=== PATIENT | female | born 1990 | race Caucasian/White ===

== ENCOUNTER → 2016-11-02 | Outpatient (CLI) | payer OTHER ==
--- NOTE | 2016-11-02 19:19 | REP ---
Clinical: Trauma. Technique: AP, lateral, bilateral oblique views right hand . Findings: The osseous structures and joint spaces are intact and normal. There is no evidence for acute fracture or dislocation. Surrounding soft tissues are unremarkable. No subcutaneous emphysema or radiodense foreign body. Impression: Normal examination. No acute fracture or dislocation. Signed by Darinel Saleem MD 11/02/2016 07:11 P
== END ==
LOC: M LRY 18:16
PROVIDERS: ATTEND Physician Assistant Medical
DX: M25.541 Pain in joints of right hand (principal)
CPT/HCPCS: 73130; G0463

== ENCOUNTER 2016-12-06 20:29 | Emergency (ER) | payer OTHER ==
[2016-12-06] MEDS ORDERED: KETOROLAC 30 MG/ML VIAL (J1885) As Ordered ONE (21:33)
[2016-12-06] MEDS ORDERED: ONDANSETRON 4MG/2ML VIAL (J2405) As Ordered ONE (21:33)
[2016-12-06] MEDS ORDERED: LORazepam 2 MG/ML VIAL (J2060) As Ordered ONE (22:00)
[2016-12-06 22:03] LABS: BASO % 0.4 % (0.0-1.0); EOS % 0.8 % (0.0-3.0); LARGE UNSTAINED CELL # 0.1 K/mm3 (0.0-0.4); LARGE UNSTAINED CELL % 1.7 % (0.0-4.0); LYMPH # 1.4 K/mm3 (1.5-6.5); LYMPH % 25.3 % (24.0-44.0); MEAN CORPUSCULAR HEMOGLOBIN 30.3 pg (27.0-33.0); MEAN CORPUSCULAR HGB CONC 34.2 g/dl (32.0-36.5); MEAN CORPUSCULAR VOLUME 88.7 fl (80.0-96.0); MONO # 0.4 K/mm3 (0.0-0.8); MONO % 6.7 % (0.0-5.0); NEUTROPHILS # 3.5 K/mm3 (1.8-7.7); NEUTROPHILS % 65.1 % (36.0-66.0); PLATELET COUNT, AUTOMATED 206 k/mm3 (150-450); WHITE BLOOD COUNT 5.4 K/mm3 (4.0-10.0)
[2016-12-06 22:15] LABS: CONTROL LINE HCG INT CTR LINE PRESENT
[2016-12-06 22:22] LABS: ALBUMIN 4.5 GM/DL (3.2-5.2); ALBUMIN/GLOBULIN RATIO 1.15 (1.00-1.93); ALKALINE PHOSPHATASE 80 U/L (45-117); ALT/SGPT 16 U/L (12-78); AMYLASE 57 U/L (25-115); ANION GAP 9 MEQ/L (8-16); AST/SGOT 10 U/L (15-37); BILIRUBIN,DIRECT 0.2 MG/DL (0.0-0.2); BILIRUBIN,TOTAL 0.6 MG/DL (0.2-1.0); BLOOD UREA NITROGEN 14 MG/DL (7-18); CALCIUM LEVEL 9.2 MG/DL (8.5-10.1); CARBON DIOXIDE LEVEL 30 MEQ/L (21-32); CHLORIDE LEVEL 103 MEQ/L (98-107); CREATININE FOR GFR 0.84 MG/DL (0.55-1.02); GLOMERULAR FILTRATION RATE > 60.0 (>60); GLUCOSE, FASTING 82 MG/DL (70-105); POTASSIUM SERUM 3.7 MEQ/L (3.5-5.1); SODIUM LEVEL 142 MEQ/L (136-145); TOTAL PROTEIN 8.4 GM/DL (6.4-8.2)
[2016-12-06] MEDS ORDERED: METOCLOPRAMIDE INJ 10MG/2ML VIAL (J2765) As Ordered ONE (22:30)
--- NOTE | 2016-12-06 23:27 | EDDOCDS ---
Nurse's Notes [facility] Name: Mary Canales Age: 26 yrs Sex: Female : 1990 Arrival Date: 12/06/2016 Time: 20:29 Bed I2 / M2 Private MD: Everton Diagnosis: Nausea and vomiting Presentation: 12/06 20:32 Presenting complaint: Patient states: n/v x 3 days. Pt sent here from [facility] [place] [id number] for further work-up. Adult Sepsis Screening: The patient does not have new or worsening altered mentation. Patient's respiratory rate is less than 22. Systolic blood pressure is greater than 100. Patient has a qSOFA score of 0- Negative Sepsis Screen. Suicide/Homicide risk assessment- the patient denies having any suicidal and/or homicidal ideations and does not present with any other emotional, behavioral or mental health complaints. Status: The patient is a dependent. Transition of care: Patient was received from [facility]. 20:32 Acuity: ANA Level 3 [facility] 20:32 Method Of Arrival: Walkin/Carried/Asstd kc3 Triage Assessment: 20:37 General: Appears in no apparent distress, comfortable, Behavior is appropriate for age, kc3 cooperative. Pain: Denies pain. Pt Declines HIV testing. Neurological: Level of Consciousness is awake, alert, obeys commands. Respiratory: Respiratory effort is even, unlabored. GI: Reports nausea, vomiting. Derm: Skin is pink, warm & dry. 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 trazodone 50 mg Oral tab daily 2. clonazepam 1 mg Oral tab nightly 3. Lexapro 20 mg Oral tab 1 tab once daily 4. Xanax 0.25 mg Oral tab as needed 5. Mirena 20 mcg/24 hr (5 years) intrauterine IUD placed about a year ago - PMHx: Anxiety; Depression; Insomnia; - PSHx: ; Knee Arthroplasty, Left; - Social history: Smoking status: Patient states was never smoker of tobacco. No barriers to communication noted, The patient speaks fluent Stateless, Speaks appropriately for age. - Family history: Not pertinent. - : The pt / caregiver states he / she is not on anticoagulants. Home medication list is obtained from the patient. - Exposure Risk Screening:: None identified. Screenin:23 Screening information is obtained from the patient. Fall risk: No risks identified. rw1 Assistance ADL's: requires no assistance with activities of daily living. Abuse/DV Screen: The patient / caregiver reports he/she is: not in a situation that causes fear, pain or injury. Nutritional screening: No deficits noted. Advance Directives: Currently, there is no health care proxy. home support is adequate. Assessment: 21:56 General: Appears in no apparent distress, Behavior is anxious, cooperative. Pain: ld5 Denies pain. Neurological: Level of Consciousness is awake, alert. Respiratory: Airway is patent Respiratory effort is even, unlabored. GI: Abdomen is non- distended Bowel sounds present X 4 quads. Abd is soft and non tender X 4 quads. Reports nausea, vomiting, intolerance of food, intolerance of fluids, since Friday. : Denies burning with urination, pain with urination. Derm: Skin is intact, Skin is dry. 22:11 General: Pt declining Toradol. Denies pain. Requesting anxiety medication. Provider ld5 made aware and pt medicated per orders. Will continue to monitor. 22:37 General: Pt reports no change in nausea. Provider aware and pt medicated per orders. ld5 Call cook within reach. Will continue to monitor. 23:08 General: Reglan infusion complete. Pt reports decrease in nausea. Reports feeling ld5 better. Provider aware. Will continue to monitor. 23:23 Reassessment: Patient appears in no apparent distress at this time. Patient denies pain rw1 at this time. Patient states feeling better. Patient states symptoms have improved. Vital Signs: 20:31 BP 111 / 69; Pulse 88; Resp 18 S; Temp 98.6(O); Pulse Ox 96% on R/A; Weight 72.57 kg gr2 (R); Height 5 ft. 2 in. (157.48 cm) (R); Pain 0/10; 23:23 BP 107 / 59; Pulse 74; Resp 16; Temp 98.2(O); Pulse Ox 96% on R/A; Pain 0/10; rw1 20:31 Body Mass Index 29.26 (72.57 kg, 157.48 cm) gr2 Vitals: 20:31 Log In Time: December 06, 2016 at 20:31. gr2 ED Course: 20:30 Patient visited by Slick Celeste. gr2 20:30 Everton is Private Physician. gr2 20:30 Patient moved to Waiting gr2 20:32 Patient visited by Slick Celeste. gr2 20:32 Patient moved to Pre RCE gr2 20:35 Triage Initiated kc3 21:14 Patient moved to Triage 1 cz 21:22 [facility] ke 21:22 Patient visited by Rey Olivares FNP. ke 21:22 Patient visited by Rey Olivares FNP. ke 21:32 Patient moved to I2 / M2 cln 21:53 Patient visited by Rey Olivares FNP. ke 21:55 Amylase Sent. ld5 21:55 Basic Metabolic Profile Sent. ld5 21:55 CBC with Diff Sent. ld5 21:55 HCG,Serum Qualitative Sent. ld5 21:55 Lipase Sent. ld5 21:55 Liver Profile Sent. ld5 21:55 Urinalysis Sent. ld5 21:55 Urine Culture Sent. ld5 21:56 Inserted saline lock: 20 gauge in right antecubital area and blood collected. The ld5 patient tolerated the procedure well. Labs drawn. (by ED staff). Sent per order to lab. Urine collected. Clean catch specimen. Urine specimen sent to lab. 21:57 Patient visited by Anyi Lyons RN. ld5 22:12 Patient visited by Anyi Lyons RN. ld5 22:38 Patient visited by Anyi Lyons RN. ld5 22:55 [facility] [place] Payment Agreement was scanned into [employer] and attached to record. gjb 23:08 Patient visited by Anyi Lyons RN. ld5 23:13 Everton is Referral Physician. ke 23:23 The patient / caregiver is instructed regarding the plan of care and ED course. rw1 23:23 Discontinued IV lock intact, bleeding controlled, pressure dressing applied, No rw1 redness/swelling at site. No procedures done that require assistance. Administered Medications: 21:55 Drug: NS 0.9% 1000 ml [sodium chloride 0.9 % intravenous solution] Route: IV; Rate: ld5 bolus; Site: right antecubital; 23:25 Follow up: IV Status: Completed infusion rw1 21:55 Drug: Ondansetron 4 mg [ondansetron HCl 2 mg/mL intravenous solution (2 mL)] Route: ld5 IVP; Site: right antecubital; 22:33 Follow up: Response: No significant change. ld5 22:07 Drug: LORazepam 0.5 mg [lorazepam 2 mg/mL injection solution (0.25 mL)] Route: IVP; ld5 Site: right antecubital; 23:25 Follow up: Response: No Adverse Reaction rw1 22:13 Not Given (Pt denies pain): ketorolac 30 mg IVP once ld5 22:37 Drug: Metoclopramide 10 mg [metoclopramide 5 mg/mL injection solution] Route: IV; Rate: ld5 40 mg/hr; Infused Over: 15 mins; Site: right antecubital; 23:25 Follow up: IV Status: Completed infusion rw1 Order Results: Lab Order: Amylase; SPEC'M 12/06/16 21:51 Test: AMYLASE; Value: 57; Range: 25-115; Units: U/L; Status: F Lab Order: Basic Metabolic Profile; SPEC'M 12/06/16 21:51 Test: GLUCOSE, FASTING; Value: 82; Range: 70-105; Units: MG/DL; Status: F Test: BLOOD UREA NITROGEN; Value: 14; Range: 7-18; Units: MG/DL; Status: F Test: CREATININE FOR GFR; Value: 0.84; Range: 0.55-1.02; Units: MG/DL; Status: F Test: SODIUM LEVEL; Range: 136-145; Units: MEQ/L; Status: I Test: POTASSIUM SERUM; Range: 3.5-5.1; Units: MEQ/L; Status: I Test: CHLORIDE LEVEL; Range: 98-107; Units: MEQ/L; Status: I Test: CARBON DIOXIDE LEVEL; Range: 21-32; Units: MEQ/L; Status: I Test: ANION GAP; Range: 8-16; Units: MEQ/L; Status: I Test: CALCIUM LEVEL; Range: 8.5-10.1; Units: MG/DL; Status: I Test: GLOMERULAR FILTRATION RATE; Value: > 60.0; Range: >60; Status: F Test: SODIUM LEVEL; Value: 142; Range: 136-145; Units: MEQ/L; Status: F Test: POTASSIUM SERUM; Value: 3.7; Range: 3.5-5.1; Units: MEQ/L; Status: F Test: CHLORIDE LEVEL; Value: 103; Range: 98-107; Units: MEQ/L; Status: F Test: CARBON DIOXIDE LEVEL; Value: 30; Range: 21-32; Units: MEQ/L; Status: F Test: ANION GAP; Value: 9; Range: 8-16; Units: MEQ/L; Status: F Test: CALCIUM LEVEL; Value: 9.2; Range: 8.5-10.1; Units: MG/DL; Status: F Test Note: ; Units are mL/min/1.73 m2 Chronic Kidney Disease Staging per NKF: Stage I & II GFR >=60 Normal to Mildly Decreased Stage III GFR 30-59 Moderately Decreased Stage IV GFR 15-29 Severely Decreased Stage V GFR <15 Very Little GFR Left ESRD GFR <15 on MOTOR VEHICLE SALESPERSON Lab Order: CBC with Diff; SPEC'M 12/06/16 21:51 Test: WHITE BLOOD COUNT; Value: 5.4; Range: 4.0-10.0; Units: K/mm3; Status: F Test: RED BLOOD COUNT; Value: 5.26; Range: 4.00-5.40; Units: M/mm3; Status: F Test: HEMOGLOBIN; Value: 15.9; Range: 12.0-16.0; Units: g/dl; Status: F Test: HEMATOCRIT; Value: 46.6; Range: 36.0-47.0; Units: %; Status: F Test: MEAN CORPUSCULAR VOLUME; Value: 88.7; Range: 80.0-96.0; Units: fl; Status: F Test: MEAN CORPUSCULAR HEMOGLOBIN; Value: 30.3; Range: 27.0-33.0; Units: pg; Status: F Test: MEAN CORPUSCULAR HGB CONC; Value: 34.2; Range: 32.0-36.5; Units: g/dl; Status: F Test: RED CELL DISTRIBUTION WIDTH; Value: 12.0; Range: 11.5-14.5; Units: %; Status: F Test: PLATELET COUNT, AUTOMATED; Value: 206; Range: 150-450; Units: k/mm3; Status: F Test: NEUTROPHILS %; Value: 65.1; Range: 36.0-66.0; Units: %; Status: F Test: LYMPH %; Value: 25.3; Range: 24.0-44.0; Units: %; Status: F Test: MONO %; Value: 6.7; Range: 0.0-5.0; Abnormal: Above high normal; Units: %; Status: F Test: EOS %; Value: 0.8; Range: 0.0-3.0; Units: %; Status: F Test: BASO %; Value: 0.4; Range: 0.0-1.0; Units: %; Status: F Test: LARGE UNSTAINED CELL %; Value: 1.7; Range: 0.0-4.0; Units: %; Status: F Test: NEUTROPHILS #; Value: 3.5; Range: 1.8-7.7; Units: K/mm3; Status: F Test: LYMPH #; Value: 1.4; Range: 1.5-6.5; Abnormal: Below low normal; Units: K/mm3; Status: F Test: MONO #; Value: 0.4; Range: 0.0-0.8; Units: K/mm3; Status: F Test: EOS #; Value: 0.0; Range: 0.0-0.50; Units: K/mm3; Status: F Test: BASO #; Value: 0.0; Range: 0.0-0.2; Units: K/mm3; Status: F Test: LARGE UNSTAINED CELL #; Value: 0.1; Range: 0.0-0.4; Units: K/mm3; Status: F Lab Order: HCG,Serum Qualitative; SPEC'M 12/06/16 21:51 Test: HCG, SERUM QUALITATIVE; Value: NEGATIVE; Range: NEGATIVE; Status: F Lab Order: Lipase; SPEC'12/06/16 21:51 Test: LIPASE; Value: 104; Range: 73-393; Units: U/L; Status: F Lab Order: Liver Profile; SPEC'12/06/16 21:51 Test: AST/SGOT; Value: 10; Range: 15-37; Abnormal: Below low normal; Units: U/L; Status: F Test: ALT/SGPT; Value: 16; Range: 12-78; Units: U/L; Status: F Test: ALKALINE PHOSPHATASE; Value: 80; Range: 45-117; Units: U/L; Status: F Test: BILIRUBIN,TOTAL; Value: 0.6; Range: 0.2-1.0; Units: MG/DL; Status: F Test: BILIRUBIN,DIRECT; Value: 0.2; Range: 0.0-0.2; Units: MG/DL; Status: F Test: TOTAL PROTEIN; Value: 8.4; Range: 6.4-8.2; Abnormal: Above high normal; Units: GM/DL; Status: F Test: ALBUMIN; Value: 4.5; Range: 3.2-5.2; Units: GM/DL; Status: F Test: ALBUMIN/GLOBULIN RATIO; Value: 1.15; Range: 1.00-1.93; Status: F Lab Order: Urinalysis; SPEC'M 12/06/16 21:51 Test: APPEARANCE, URINE; Value: CLOUDY; Range: CLEAR; Abnormal: Above high normal; Status: F Test: COLOR, URINE; Value: RACHANA; Range: YELLOW; Status: F Test: PH,URINE; Value: 5.0; Range: 5.0-9.0; Units: UNITS; Status: F Test: SPECIFIC GRAVITY URINE AUTO; Value: 1.033; Range: 1.002-1.035; Status: F Test: PROTEIN, URINE AUTO; Value: 1+; Range: NEGATIVE; Abnormal: Above high normal; Units: mg/dL; Status: F Test: GLUCOSE, URINE (UA) AUTO; Value: NEGATIVE; Range: NEGATIVE; Units: mg/dL; Status: F Test: KETONE, URINE AUTO; Value: 2+; Range: NEGATIVE; Abnormal: Above high normal; Units: mg/dL; Status: F Test: UROBILINOGEN, URINE AUTO; Value: 2.0; Range: 0.0-2.0; Abnormal: Above high normal; Units: mg/dL; Status: F Test: BILIRUBIN, URINE AUTO; Value: NEGATIVE; Range: NEGATIVE; Status: F Test: NITRITE, URINE AUTO; Value: NEGATIVE; Range: NEGATIVE; Status: F Test: LEUKOCYTE ESTERASE, URINE AUTO; Value: NEGATIVE; Range: NEGATIVE; Status: F Test: BLOOD, URINE BLOOD; Value: 3+; Range: NEGATIVE; Abnormal: Above high normal; Status: F Test: WBC, URINE AUTO; Value: 8; Range: 0-3; Abnormal: Above high normal; Units: /HPF; Status: F Test: RBC, URINE AUTO; Value: 37; Range: 0-3; Abnormal: Above high normal; Units: /HPF; Status: F Test: BACTERIA, URINE AUTO; Value: 1+; Range: NEGATIVE; Abnormal: Above high normal; Status: F Test: SQUAMOUS EPITHELIAL CELL UR AU; Value: 35; Range: 0-6; Units: /HPF; Status: F Test: MUCUS, URINE; Value: MODERATE; Range: NEGATIVE; Status: F Test: HYALINE CAST, URINE AUTO; Value: 0; Range: 0-1; Units: /LPF; Status: F Outcome: 23:13 Discharge ordered by Provider. 23:23 Discharge Assessment: Patient awake, alert and oriented x 3. No cognitive and/or rw1 functional deficits noted. Patient verbalized understanding of disposition instructions. 23:26 Discharge Assessment: patient administered narcotics - yes. Pt provided with safe rw1 discharge. The following High Risk Discharge criteria are identified: None. Discharged to home ambulatory, with significant other. Condition: stable Condition: improved. Discharge instructions given to patient, Instructed on discharge instructions, follow up and referral plans. medication usage, Demonstrated understanding of instructions, medications, Pt was receptive of discharge instructions/ teaching. Prescriptions given X 1. No special radiology studies were completed. Property sent home with patient. 23:26 Patient left the ED. rw1 Signatures: Newton Lopez, RN RN Rey Costello, BRIEFCASE SEWER BRIEFCASE SEWER Nikolas Montalvo,UTILITY LOCATE TECHNICIAN UTILITY LOCATE TECHNICIAN rw1 Anyi Lyons,RN RN ld5 Slick Celeste gr2 Maggie Saeed,RN RN lakesha3 Shikha Pinto Crystal, STEPH CAR CLERK PULLMAN cln MTDD
--- NOTE | 2016-12-06 23:27 | EDDOCDS ---
Physician Documentation [facility] Name: Mary Canales Age: 26 yrs Sex: Female : 1990 Arrival Date: 12/06/2016 Time: 20:29 Bed I2 / M2 Private MD: Everton Disposition: 12/06/16 23:13 Discharged to Home/Self Care. Impression: Nausea and vomiting. - Condition is Stable. - Discharge Instructions: Nausea and Vomiting. - Prescriptions for Zofran 4 mg Oral Tablet - take 1 tablet by ORAL route 4 times per day As needed; 10 tablet. - Medication Reconciliation, Local Pharmacy Hours form. - Follow up: Everton; When: 4 - 5 days; Reason: Recheck today's complaints, Continuance of care. - Problem is an ongoing problem. - Symptoms are unchanged. Historical: - Allergies: SULFA (SULFONAMIDES); - Home Meds: 1. trazodone 50 mg Oral tab daily 2. clonazepam 1 mg Oral tab nightly 3. Lexapro 20 mg Oral tab 1 tab once daily 4. Xanax 0.25 mg Oral tab as needed 5. Mirena 20 mcg/24 hr (5 years) intrauterine IUD placed about a year ago - PMHx: Anxiety; Depression; Insomnia; - PSHx: ; Knee Arthroplasty, Left; - Social history: Smoking status: Patient states was never smoker of tobacco. No barriers to communication noted, The patient speaks fluent Czech, Speaks appropriately for age. - Family history: Not pertinent. - : The pt / caregiver states he / she is not on anticoagulants. Home medication list is obtained from the patient. - Exposure Risk Screening:: None identified. 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 2 in. (157.48 cm) (R); Pain 0/10; 23:23 BP 107 / 59; Pulse 74; Resp 16; Temp 98.2(O); Pulse Ox 96% on R/A; Pain 0/10; rw1 20:31 Body Mass Index 29.26 (72.57 kg, 157.48 cm) gr2 MDM: 21:27 NS 0.9% 1000 ml IV at bolus once ordered. ke 21:27 Ondansetron 4 mg IVP once ordered. ke 21:27 ketorolac 30 mg IVP once ordered. ke 21:27 IV Saline Lock ordered. ke 21:27 Undress patient appropriately for examination ordered. ke 21:27 Amylase Ordered. EDMS 21:27 Basic Metabolic Profile Ordered. EDMS 21:27 CBC with Diff Ordered. EDMS 21:27 HCG,Serum Qualitative Ordered. EDMS 21:27 Lipase Ordered. EDMS 21:27 Liver Profile Ordered. EDMS 21:27 Urinalysis Ordered. EDMS 21:27 Urine Culture Ordered. EDMS 21:29 NOTHING BY MOUTH+DIET ordered. EDMS 21:54 LORazepam 0.5 mg IVP once ordered. ke 22:18 CBC with Diff Reviewed. ke 22:18 Urinalysis Reviewed. ke 22:18 HCG,Serum Qualitative Reviewed. ke 22:19 Amylase Reviewed. ke 22:19 Basic Metabolic Profile Reviewed. ke 22:19 Lipase Reviewed. ke 22:19 Liver Profile Reviewed. ke 22:26 Liver Profile Reviewed. ke 22:26 Amylase Reviewed. ke 22:26 Basic Metabolic Profile Reviewed. ke 22:26 HCG,Serum Qualitative Reviewed. ke 22:26 Lipase Reviewed. ke 22:30 Metoclopramide 10 mg IV at 40 mg/hr once over 15 mins ordered. ke 22:53 Financial registration complete. [facility] 22:55 [facility] [place] Payment Agreement was scanned into [employer] and attached to record. gjb Administered Medications: 21:55 Drug: NS 0.9% 1000 ml [sodium chloride 0.9 % intravenous solution] Route: IV; Rate: ld5 bolus; Site: right antecubital; 23:25 Follow up: IV Status: Completed infusion rw1 21:55 Drug: Ondansetron 4 mg [ondansetron HCl 2 mg/mL intravenous solution (2 mL)] Route: ld5 IVP; Site: right antecubital; 22:33 Follow up: Response: No significant change. ld5 22:07 Drug: LORazepam 0.5 mg [lorazepam 2 mg/mL injection solution (0.25 mL)] Route: IVP; ld5 Site: right antecubital; 23:25 Follow up: Response: No Adverse Reaction rw1 22:13 Not Given (Pt denies pain): ketorolac 30 mg IVP once ld5 22:37 Drug: Metoclopramide 10 mg [metoclopramide 5 mg/mL injection solution] Route: IV; Rate: ld5 40 mg/hr; Infused Over: 15 mins; Site: right antecubital; 23:25 Follow up: IV Status: Completed infusion rw1 Signatures: Dispatcher [employer] EDMS Rey Olivares, MANAGER SOURCING MANAGER SOURCING Nikolas Montalvo LPN CONSUMER LOAN UNDERWRITER rw1 Maggie SaeedRN RN lakesha3 Shikha Pinto Laura RN ld5 The chart was reviewed and I authenticate all verbal orders and agree with the evaluation and treatment provided.Attachments: 22:55 [facility] Payment Agreement jeramy MTDD
--- NOTE | 2016-12-09 00:27 | EDDOCDS ---
Physician Documentation [facility] Name: Mary Canales Age: 26 yrs Sex: Female : 1990 Arrival Date: 12/06/2016 Time: 20:29 Bed I2 / M2 Private MD: Everton Disposition: 12/06/16 23:13 Discharged to Home/Self Care. Impression: Nausea and vomiting. - Condition is Stable. - Discharge Instructions: Nausea and Vomiting. - Prescriptions for Zofran 4 mg Oral Tablet - take 1 tablet by ORAL route 4 times per day As needed; 10 tablet. - Medication Reconciliation, Local Pharmacy Hours form. - Follow up: Everton; When: 4 - 5 days; Reason: Recheck today's complaints, Continuance of care. - Problem is an ongoing problem. - Symptoms are unchanged. Historical: - Allergies: SULFA (SULFONAMIDES); - Home Meds: 1. trazodone 50 mg Oral tab daily 2. clonazepam 1 mg Oral tab nightly 3. Lexapro 20 mg Oral tab 1 tab once daily 4. Xanax 0.25 mg Oral tab as needed 5. Mirena 20 mcg/24 hr (5 years) intrauterine IUD placed about a year ago - PMHx: Anxiety; Depression; Insomnia; - PSHx: ; Knee Arthroplasty, Left; - Social history: Smoking status: Patient states was never smoker of tobacco. No barriers to communication noted, The patient speaks fluent Mohawk, Speaks appropriately for age. - Family history: Not pertinent. - : The pt / caregiver states he / she is not on anticoagulants. Home medication list is obtained from the patient. - Exposure Risk Screening:: None identified. WAITER/WAITRESS TAVERN: 12/06 20:38 LMP N/A - control method kc3 Vital Signs: 20:31 BP 111 / 69; Pulse 88; Resp 18 S; Temp 98.6(O); Pulse Ox 96% on R/A; Weight 72.57 kg / gr2 159.99 lbs (R); Height 5 ft. 2 in. (157.48 cm) (R); Pain 0/10; 23:23 BP 107 / 59; Pulse 74; Resp 16; Temp 98.2(O); Pulse Ox 96% on R/A; Pain 0/10; rw1 20:31 Body Mass Index 29.26 (72.57 kg, 157.48 cm) gr2 MDM: 21:27 NS 0.9% 1000 ml IV at bolus once ordered. ke 21:27 Ondansetron 4 mg IVP once ordered. ke 21:27 ketorolac 30 mg IVP once ordered. ke 21:27 IV Saline Lock ordered. ke 21:27 Undress patient appropriately for examination ordered. ke 21:27 Amylase Ordered. EDMS 21:27 Basic Metabolic Profile Ordered. EDMS 21:27 CBC with Diff Ordered. EDMS 21:27 HCG,Serum Qualitative Ordered. EDMS 21:27 Lipase Ordered. EDMS 21:27 Liver Profile Ordered. EDMS 21:27 Urinalysis Ordered. EDMS 21:27 Urine Culture Ordered. EDMS 21:29 NOTHING BY MOUTH+DIET ordered. EDMS 21:54 LORazepam 0.5 mg IVP once ordered. ke 22:18 CBC with Diff Reviewed. ke 22:18 Urinalysis Reviewed. ke 22:18 HCG,Serum Qualitative Reviewed. ke 22:19 Amylase Reviewed. ke 22:19 Basic Metabolic Profile Reviewed. ke 22:19 Lipase Reviewed. ke 22:19 Liver Profile Reviewed. ke 22:26 Liver Profile Reviewed. ke 22:26 Amylase Reviewed. ke 22:26 Basic Metabolic Profile Reviewed. ke 22:26 HCG,Serum Qualitative Reviewed. ke 22:26 Lipase Reviewed. ke 22:30 Metoclopramide 10 mg IV at 40 mg/hr once over 15 mins ordered. ke 22:53 Financial registration complete. [facility] 22:55 [facility] Payment Agreement was scanned into [employer] and attached to record. [facility] 12/07 11:25 T-Sheet-- Draft Copy was scanned into [employer] and attached to record. gb Administered Medications: 12/06 21:55 Drug: NS 0.9% 1000 ml [sodium chloride 0.9 % intravenous solution] Route: IV; Rate: ld5 bolus; Site: right antecubital; 23:25 Follow up: IV Status: Completed infusion rw1 21:55 Drug: Ondansetron 4 mg [ondansetron HCl 2 mg/mL intravenous solution (2 mL)] Route: ld5 IVP; Site: right antecubital; 22:33 Follow up: Response: No significant change. ld5 22:07 Drug: LORazepam 0.5 mg [lorazepam 2 mg/mL injection solution (0.25 mL)] Route: IVP; ld5 Site: right antecubital; 23:25 Follow up: Response: No Adverse Reaction rw1 22:13 Not Given (Pt denies pain): ketorolac 30 mg IVP once ld5 22:37 Drug: Metoclopramide 10 mg [metoclopramide 5 mg/mL injection solution] Route: IV; Rate: ld5 40 mg/hr; Infused Over: 15 mins; Site: right antecubital; 23:25 Follow up: IV Status: Completed infusion rw1 Signatures: Dispatcher [employer] EDMS Moriah York, Reg Reg gb Rey Olivares, RAIL ASSEMBLER RAIL ASSEMBLER Nikolas Montalvo,MANAGER TRANSPORTATION MANAGER TRANSPORTATION rw1 Maggie Saeed,RN RN kc3 Shikha Pinto gjb Anyi Lyons RN ld5 The chart was reviewed and I authenticate all verbal orders and agree with the evaluation and treatment provided.Attachments: 22:55 [facility] Payment Agreement gjb 12/07 11:25 T-Sheet-- Draft Copy Chart Complete MTDD
--- NOTE | 2016-12-09 00:27 | EDDOCDS ---
Physician Documentation [facility] Name: Mary Canales Age: 26 yrs Sex: Female : 1990 Arrival Date: 12/06/2016 Time: 20:29 Bed I2 / M2 Private MD: Everton Disposition: 12/06/16 23:13 Discharged to Home/Self Care. Impression: Nausea and vomiting. - Condition is Stable. - Discharge Instructions: Nausea and Vomiting. - Prescriptions for Zofran 4 mg Oral Tablet - take 1 tablet by ORAL route 4 times per day As needed; 10 tablet. - Medication Reconciliation, Local Pharmacy Hours form. - Follow up: Everton; When: 4 - 5 days; Reason: Recheck today's complaints, Continuance of care. - Problem is an ongoing problem. - Symptoms are unchanged. Historical: - Allergies: SULFA (SULFONAMIDES); - Home Meds: 1. trazodone 50 mg Oral tab daily 2. clonazepam 1 mg Oral tab nightly 3. Lexapro 20 mg Oral tab 1 tab once daily 4. Xanax 0.25 mg Oral tab as needed 5. Mirena 20 mcg/24 hr (5 years) intrauterine IUD placed about a year ago - PMHx: Anxiety; Depression; Insomnia; - PSHx: ; Knee Arthroplasty, Left; - Social history: Smoking status: Patient states was never smoker of tobacco. No barriers to communication noted, The patient speaks fluent Greenlandic, Speaks appropriately for age. - Family history: Not pertinent. - : The pt / caregiver states he / she is not on anticoagulants. Home medication list is obtained from the patient. - Exposure Risk Screening:: None identified. 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 2 in. (157.48 cm) (R); Pain 0/10; 23:23 BP 107 / 59; Pulse 74; Resp 16; Temp 98.2(O); Pulse Ox 96% on R/A; Pain 0/10; rw1 20:31 Body Mass Index 29.26 (72.57 kg, 157.48 cm) gr2 MDM: 21:27 NS 0.9% 1000 ml IV at bolus once ordered. ke 21:27 Ondansetron 4 mg IVP once ordered. ke 21:27 ketorolac 30 mg IVP once ordered. ke 21:27 IV Saline Lock ordered. ke 21:27 Undress patient appropriately for examination ordered. ke 21:27 Amylase Ordered. EDMS 21:27 Basic Metabolic Profile Ordered. EDMS 21:27 CBC with Diff Ordered. EDMS 21:27 HCG,Serum Qualitative Ordered. EDMS 21:27 Lipase Ordered. EDMS 21:27 Liver Profile Ordered. EDMS 21:27 Urinalysis Ordered. EDMS 21:27 Urine Culture Ordered. EDMS 21:29 NOTHING BY MOUTH+DIET ordered. EDMS 21:54 LORazepam 0.5 mg IVP once ordered. ke 22:18 CBC with Diff Reviewed. ke 22:18 Urinalysis Reviewed. ke 22:18 HCG,Serum Qualitative Reviewed. ke 22:19 Amylase Reviewed. ke 22:19 Basic Metabolic Profile Reviewed. ke 22:19 Lipase Reviewed. ke 22:19 Liver Profile Reviewed. ke 22:26 Liver Profile Reviewed. ke 22:26 Amylase Reviewed. ke 22:26 Basic Metabolic Profile Reviewed. ke 22:26 HCG,Serum Qualitative Reviewed. ke 22:26 Lipase Reviewed. ke 22:30 Metoclopramide 10 mg IV at 40 mg/hr once over 15 mins ordered. ke 22:53 Financial registration complete. [facility] 22:55 [facility] Payment Agreement was scanned into [employer] and attached to record. [facility] 12/07 11:25 T-Sheet-- Draft Copy was scanned into S[employer] and attached to record. gb Administered Medications: 12/06 21:55 Drug: NS 0.9% 1000 ml [sodium chloride 0.9 % intravenous solution] Route: IV; Rate: ld5 bolus; Site: right antecubital; 23:25 Follow up: IV Status: Completed infusion rw1 21:55 Drug: Ondansetron 4 mg [ondansetron HCl 2 mg/mL intravenous solution (2 mL)] Route: ld5 IVP; Site: right antecubital; 22:33 Follow up: Response: No significant change. ld5 22:07 Drug: LORazepam 0.5 mg [lorazepam 2 mg/mL injection solution (0.25 mL)] Route: IVP; ld5 Site: right antecubital; 23:25 Follow up: Response: No Adverse Reaction rw1 22:13 Not Given (Pt denies pain): ketorolac 30 mg IVP once ld5 22:37 Drug: Metoclopramide 10 mg [metoclopramide 5 mg/mL injection solution] Route: IV; Rate: ld5 40 mg/hr; Infused Over: 15 mins; Site: right antecubital; 23:25 Follow up: IV Status: Completed infusion rw1 Signatures: Dispatcher [employer] EDMS Moriah York, Reg Reg gb Rey Olivares, SNOW FENCE ERECTOR SNOW FENCE ERECTOR Nikolas Montalvo,BANQUET LEAD BANQUET LEAD rw1 Maggie Saeed,RN RN kc3 Shikha Pinto gjb Anyi Lyons RN ld5 The chart was reviewed and I authenticate all verbal orders and agree with the evaluation and treatment provided.Attachments: 22:55 [facility] Payment Agreement gjb 12/07 11:25 T-Sheet-- Draft Copy Chart Complete MTDD
--- NOTE | 2016-12-09 00:27 | EDDOCDS ---
Nurse's Notes [facility] Name: Mary Canales Age: 26 yrs Sex: Female : 1990 Arrival Date: 12/06/2016 Time: 20:29 Bed I2 / M2 Private MD: Everton Diagnosis: Nausea and vomiting Presentation: 12/06 20:32 Presenting complaint: Patient states: n/v x 3 days. Pt sent here from [facility] [place] [id number] for further work-up. Adult Sepsis Screening: The patient does not have new or worsening altered mentation. Patient's respiratory rate is less than 22. Systolic blood pressure is greater than 100. Patient has a qSOFA score of 0- Negative Sepsis Screen. Suicide/Homicide risk assessment- the patient denies having any suicidal and/or homicidal ideations and does not present with any other emotional, behavioral or mental health complaints. Status: The patient is a dependent. Transition of care: Patient was received from [facility]. 20:32 Acuity: ANA Level 3 [facility] 20:32 Method Of Arrival: Walkin/Carried/Asstd kc3 Triage Assessment: 20:37 General: Appears in no apparent distress, comfortable, Behavior is appropriate for age, kc3 cooperative. Pain: Denies pain. Pt Declines HIV testing. Neurological: Level of Consciousness is awake, alert, obeys commands. Respiratory: Respiratory effort is even, unlabored. GI: Reports nausea, vomiting. Derm: Skin is pink, warm & dry. 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 trazodone 50 mg Oral tab daily 2. clonazepam 1 mg Oral tab nightly 3. Lexapro 20 mg Oral tab 1 tab once daily 4. Xanax 0.25 mg Oral tab as needed 5. Mirena 20 mcg/24 hr (5 years) intrauterine IUD placed about a year ago - PMHx: Anxiety; Depression; Insomnia; - PSHx: ; Knee Arthroplasty, Left; - Social history: Smoking status: Patient states was never smoker of tobacco. No barriers to communication noted, The patient speaks fluent Barbadian, Speaks appropriately for age. - Family history: Not pertinent. - : The pt / caregiver states he / she is not on anticoagulants. Home medication list is obtained from the patient. - Exposure Risk Screening:: None identified. Screenin:23 Screening information is obtained from the patient. Fall risk: No risks identified. rw1 Assistance ADL's: requires no assistance with activities of daily living. Abuse/DV Screen: The patient / caregiver reports he/she is: not in a situation that causes fear, pain or injury. Nutritional screening: No deficits noted. Advance Directives: Currently, there is no health care proxy. home support is adequate. Assessment: 21:56 General: Appears in no apparent distress, Behavior is anxious, cooperative. Pain: ld5 Denies pain. Neurological: Level of Consciousness is awake, alert. Respiratory: Airway is patent Respiratory effort is even, unlabored. GI: Abdomen is non- distended Bowel sounds present X 4 quads. Abd is soft and non tender X 4 quads. Reports nausea, vomiting, intolerance of food, intolerance of fluids, since Friday. : Denies burning with urination, pain with urination. Derm: Skin is intact, Skin is dry. 22:11 General: Pt declining Toradol. Denies pain. Requesting anxiety medication. Provider ld5 made aware and pt medicated per orders. Will continue to monitor. 22:37 General: Pt reports no change in nausea. Provider aware and pt medicated per orders. ld5 Call cook within reach. Will continue to monitor. 23:08 General: Reglan infusion complete. Pt reports decrease in nausea. Reports feeling ld5 better. Provider aware. Will continue to monitor. 23:23 Reassessment: Patient appears in no apparent distress at this time. Patient denies pain rw1 at this time. Patient states feeling better. Patient states symptoms have improved. Vital Signs: 20:31 BP 111 / 69; Pulse 88; Resp 18 S; Temp 98.6(O); Pulse Ox 96% on R/A; Weight 72.57 kg gr2 (R); Height 5 ft. 2 in. (157.48 cm) (R); Pain 0/10; 23:23 BP 107 / 59; Pulse 74; Resp 16; Temp 98.2(O); Pulse Ox 96% on R/A; Pain 0/10; rw1 20:31 Body Mass Index 29.26 (72.57 kg, 157.48 cm) gr2 Vitals: 20:31 Log In Time: December 06, 2016 at 20:31. gr2 ED Course: 20:30 Patient visited by Slick Celeste. gr2 20:30 Everton is Private Physician. gr2 20:30 Patient moved to Waiting gr2 20:32 Patient visited by Slick Celeste. gr2 20:32 Patient moved to Pre RCE gr2 20:35 Triage Initiated kc3 21:14 Patient moved to Triage 1 cz 21:22 [facility] ke 21:22 Patient visited by Rey Olivares FNP. ke 21:22 Patient visited by Rey Olivares FNP. ke 21:32 Patient moved to I2 / M2 cln 21:53 Patient visited by Rey Olivares FNP. ke 21:55 Amylase Sent. ld5 21:55 Basic Metabolic Profile Sent. ld5 21:55 CBC with Diff Sent. ld5 21:55 HCG,Serum Qualitative Sent. ld5 21:55 Lipase Sent. ld5 21:55 Liver Profile Sent. ld5 21:55 Urinalysis Sent. ld5 21:55 Urine Culture Sent. ld5 21:56 Inserted saline lock: 20 gauge in right antecubital area and blood collected. The ld5 patient tolerated the procedure well. Labs drawn. (by ED staff). Sent per order to lab. Urine collected. Clean catch specimen. Urine specimen sent to lab. 21:57 Patient visited by Anyi Lyons RN. ld5 22:12 Patient visited by Anyi Lyons,CARLOS. ld5 22:38 Patient visited by Anyi Lyons,CARLOS. ld5 22:55 [facility] Payment Agreement was scanned into [employer] and attached to record. gjb 23:08 Patient visited by Anyi Lyons RN. ld5 23:13 Everton is Referral Physician. ke 23:23 The patient / caregiver is instructed regarding the plan of care and ED course. rw1 23:23 Discontinued IV lock intact, bleeding controlled, pressure dressing applied, No rw1 redness/swelling at site. No procedures done that require assistance. 12/07 11:25 T-Sheet-- Draft Copy was scanned into [employer] and attached to record. gb Administered Medications: 12/06 21:55 Drug: NS 0.9% 1000 ml [sodium chloride 0.9 % intravenous solution] Route: IV; Rate: ld5 bolus; Site: right antecubital; 23:25 Follow up: IV Status: Completed infusion rw1 21:55 Drug: Ondansetron 4 mg [ondansetron HCl 2 mg/mL intravenous solution (2 mL)] Route: ld5 IVP; Site: right antecubital; 22:33 Follow up: Response: No significant change. ld5 22:07 Drug: LORazepam 0.5 mg [lorazepam 2 mg/mL injection solution (0.25 mL)] Route: IVP; ld5 Site: right antecubital; 23:25 Follow up: Response: No Adverse Reaction rw1 22:13 Not Given (Pt denies pain): ketorolac 30 mg IVP once ld5 22:37 Drug: Metoclopramide 10 mg [metoclopramide 5 mg/mL injection solution] Route: IV; Rate: ld5 40 mg/hr; Infused Over: 15 mins; Site: right antecubital; 23:25 Follow up: IV Status: Completed infusion rw1 Order Results: Lab Order: Amylase; SPEC'M 12/06/16 21:51 Test: AMYLASE; Value: 57; Range: 25-115; Units: U/L; Status: F Lab Order: Basic Metabolic Profile; SPEC'M 12/06/16 21:51 Test: GLUCOSE, FASTING; Value: 82; Range: 70-105; Units: MG/DL; Status: F Test: BLOOD UREA NITROGEN; Value: 14; Range: 7-18; Units: MG/DL; Status: F Test: CREATININE FOR GFR; Value: 0.84; Range: 0.55-1.02; Units: MG/DL; Status: F Test: SODIUM LEVEL; Range: 136-145; Units: MEQ/L; Status: I Test: POTASSIUM SERUM; Range: 3.5-5.1; Units: MEQ/L; Status: I Test: CHLORIDE LEVEL; Range: 98-107; Units: MEQ/L; Status: I Test: CARBON DIOXIDE LEVEL; Range: 21-32; Units: MEQ/L; Status: I Test: ANION GAP; Range: 8-16; Units: MEQ/L; Status: I Test: CALCIUM LEVEL; Range: 8.5-10.1; Units: MG/DL; Status: I Test: GLOMERULAR FILTRATION RATE; Value: > 60.0; Range: >60; Status: F Test: SODIUM LEVEL; Value: 142; Range: 136-145; Units: MEQ/L; Status: F Test: POTASSIUM SERUM; Value: 3.7; Range: 3.5-5.1; Units: MEQ/L; Status: F Test: CHLORIDE LEVEL; Value: 103; Range: 98-107; Units: MEQ/L; Status: F Test: CARBON DIOXIDE LEVEL; Value: 30; Range: 21-32; Units: MEQ/L; Status: F Test: ANION GAP; Value: 9; Range: 8-16; Units: MEQ/L; Status: F Test: CALCIUM LEVEL; Value: 9.2; Range: 8.5-10.1; Units: MG/DL; Status: F Test Note: ; Units are mL/min/1.73 m2 Chronic Kidney Disease Staging per NKF: Stage I & II GFR >=60 Normal to Mildly Decreased Stage III GFR 30-59 Moderately Decreased Stage IV GFR 15-29 Severely Decreased Stage V GFR <15 Very Little GFR Left ESRD GFR <15 on ROLL COVERER Lab Order: CBC with Diff; SPEC'M 12/06/16 21:51 Test: WHITE BLOOD COUNT; Value: 5.4; Range: 4.0-10.0; Units: K/mm3; Status: F Test: RED BLOOD COUNT; Value: 5.26; Range: 4.00-5.40; Units: M/mm3; Status: F Test: HEMOGLOBIN; Value: 15.9; Range: 12.0-16.0; Units: g/dl; Status: F Test: HEMATOCRIT; Value: 46.6; Range: 36.0-47.0; Units: %; Status: F Test: MEAN CORPUSCULAR VOLUME; Value: 88.7; Range: 80.0-96.0; Units: fl; Status: F Test: MEAN CORPUSCULAR HEMOGLOBIN; Value: 30.3; Range: 27.0-33.0; Units: pg; Status: F Test: MEAN CORPUSCULAR HGB CONC; Value: 34.2; Range: 32.0-36.5; Units: g/dl; Status: F Test: RED CELL DISTRIBUTION WIDTH; Value: 12.0; Range: 11.5-14.5; Units: %; Status: F Test: PLATELET COUNT, AUTOMATED; Value: 206; Range: 150-450; Units: k/mm3; Status: F Test: NEUTROPHILS %; Value: 65.1; Range: 36.0-66.0; Units: %; Status: F Test: LYMPH %; Value: 25.3; Range: 24.0-44.0; Units: %; Status: F Test: MONO %; Value: 6.7; Range: 0.0-5.0; Abnormal: Above high normal; Units: %; Status: F Test: EOS %; Value: 0.8; Range: 0.0-3.0; Units: %; Status: F Test: BASO %; Value: 0.4; Range: 0.0-1.0; Units: %; Status: F Test: LARGE UNSTAINED CELL %; Value: 1.7; Range: 0.0-4.0; Units: %; Status: F Test: NEUTROPHILS #; Value: 3.5; Range: 1.8-7.7; Units: K/mm3; Status: F Test: LYMPH #; Value: 1.4; Range: 1.5-6.5; Abnormal: Below low normal; Units: K/mm3; Status: F Test: MONO #; Value: 0.4; Range: 0.0-0.8; Units: K/mm3; Status: F Test: EOS #; Value: 0.0; Range: 0.0-0.50; Units: K/mm3; Status: F Test: BASO #; Value: 0.0; Range: 0.0-0.2; Units: K/mm3; Status: F Test: LARGE UNSTAINED CELL #; Value: 0.1; Range: 0.0-0.4; Units: K/mm3; Status: F Lab Order: HCG,Serum Qualitative; SPEC' 12/06/16 21:51 Test: HCG, SERUM QUALITATIVE; Value: NEGATIVE; Range: NEGATIVE; Status: F Lab Order: Lipase; SPEC' 12/06/16 21:51 Test: LIPASE; Value: 104; Range: 73-393; Units: U/L; Status: F Lab Order: Liver Profile; SPEC' 12/06/16 21:51 Test: AST/SGOT; Value: 10; Range: 15-37; Abnormal: Below low normal; Units: U/L; Status: F Test: ALT/SGPT; Value: 16; Range: 12-78; Units: U/L; Status: F Test: ALKALINE PHOSPHATASE; Value: 80; Range: 45-117; Units: U/L; Status: F Test: BILIRUBIN,TOTAL; Value: 0.6; Range: 0.2-1.0; Units: MG/DL; Status: F Test: BILIRUBIN,DIRECT; Value: 0.2; Range: 0.0-0.2; Units: MG/DL; Status: F Test: TOTAL PROTEIN; Value: 8.4; Range: 6.4-8.2; Abnormal: Above high normal; Units: GM/DL; Status: F Test: ALBUMIN; Value: 4.5; Range: 3.2-5.2; Units: GM/DL; Status: F Test: ALBUMIN/GLOBULIN RATIO; Value: 1.15; Range: 1.00-1.93; Status: F Lab Order: Urinalysis; [facility] 12/06/16 21:51 Test: APPEARANCE, URINE; Value: CLOUDY; Range: CLEAR; Abnormal: Above high normal; Status: F Test: COLOR, URINE; Value: RACHANA; Range: YELLOW; Status: F Test: PH,URINE; Value: 5.0; Range: 5.0-9.0; Units: UNITS; Status: F Test: SPECIFIC GRAVITY URINE AUTO; Value: 1.033; Range: 1.002-1.035; Status: F Test: PROTEIN, URINE AUTO; Value: 1+; Range: NEGATIVE; Abnormal: Above high normal; Units: mg/dL; Status: F Test: GLUCOSE, URINE (UA) AUTO; Value: NEGATIVE; Range: NEGATIVE; Units: mg/dL; Status: F Test: KETONE, URINE AUTO; Value: 2+; Range: NEGATIVE; Abnormal: Above high normal; Units: mg/dL; Status: F Test: UROBILINOGEN, URINE AUTO; Value: 2.0; Range: 0.0-2.0; Abnormal: Above high normal; Units: mg/dL; Status: F Test: BILIRUBIN, URINE AUTO; Value: NEGATIVE; Range: NEGATIVE; Status: F Test: NITRITE, URINE AUTO; Value: NEGATIVE; Range: NEGATIVE; Status: F Test: LEUKOCYTE ESTERASE, URINE AUTO; Value: NEGATIVE; Range: NEGATIVE; Status: F Test: BLOOD, URINE BLOOD; Value: 3+; Range: NEGATIVE; Abnormal: Above high normal; Status: F Test: WBC, URINE AUTO; Value: 8; Range: 0-3; Abnormal: Above high normal; Units: /HPF; Status: F Test: RBC, URINE AUTO; Value: 37; Range: 0-3; Abnormal: Above high normal; Units: /HPF; Status: F Test: BACTERIA, URINE AUTO; Value: 1+; Range: NEGATIVE; Abnormal: Above high normal; Status: F Test: SQUAMOUS EPITHELIAL CELL UR AU; Value: 35; Range: 0-6; Units: /HPF; Status: F Test: MUCUS, URINE; Value: MODERATE; Range: NEGATIVE; Status: F Test: HYALINE CAST, URINE AUTO; Value: 0; Range: 0-1; Units: /LPF; Status: F Lab Order: Urine Culture; SPEC'M 12/06/16 21:51 Test: URINE CULTURE; Value: <EXTERNAL COMMENT eCWMed> FULL REPORT IN LAB NOTES (eCW and Medent).; Status: F Test: URINE CULTURE; Value: URINE CULTURE RESULT SPECIMEN APPEARS CONTAMINATED; Status: F Outcome: 23:13 Discharge ordered by Provider. adalid 23:23 Discharge Assessment: Patient awake, alert and oriented x 3. No cognitive and/or rw1 functional deficits noted. Patient verbalized understanding of disposition instructions. 23:26 Discharge Assessment: patient administered narcotics - yes. Pt provided with safe rw1 discharge. The following High Risk Discharge criteria are identified: None. Discharged to home ambulatory, with significant other. Condition: stable Condition: improved. Discharge instructions given to patient, Instructed on discharge instructions, follow up and referral plans. medication usage, Demonstrated understanding of instructions, medications, Pt was receptive of discharge instructions/ teaching. Prescriptions given X 1. No special radiology studies were completed. Property sent home with patient. 23:26 Patient left the ED. rw1 Signatures: Newton Lopez, CARLOS RN cz Jaylen, Moriah, Reg Reg gb Rey Olivares, UROLOGY TEACHER UROLOGY TEACHER Nikolas Montalvo LPN ADVISOR CONSULTANT rw1 Anyi Lyons RN RN ld5 Slick Celeste gr2 Maggie Saeed,CARLOS RN kc3 Shikha Pintob Sushil, Gregoria, SERVICE TECHNICIAN COPIER SERVICE TECHNICIAN COPIER cln Chart Complete MTDD
== END 2016-12-06 23:26 | disposition home or self-care (01) ==
LOC: M ED 20:29
DX: R11.2 Nausea with vomiting, unspecified (principal); F41.9 Anxiety disorder, unspecified; F32.9 Major depressive disorder, single episode, unspecified; G47.00 Insomnia, unspecified; Z79.899 Other long term (current) drug therapy; Z88.2 Allergy status to sulfonamides
CPT/HCPCS: 36415; 80048; 80076; 81001; 82150; 83690; 84703; 85025; 87086; 96361; 96365; 96375; 99284; G0463; J2060; J2405; J2765

== ENCOUNTER → 2017-09-18 | Outpatient (CLI) | payer OTHER ==
[2017-09-18 14:13] LABS: BASO % 0.3 % (0.0-1.0); EOS # 0.1 10^3/uL (0.0-0.50); EOS % 0.8 % (0.0-3.0); IMMATURE GRANULOCYTE % 0.3 % (0-0); LYMPH # 2.3 10^3/uL (1.5-6.5); LYMPH % 31.3 % (24.0-44.0); MEAN CORPUSCULAR HGB CONC 33.5 g/dl (32.0-36.5); MEAN CORPUSCULAR VOLUME 89.7 fl (80.0-96.0); MONO # 0.4 10^3/uL (0.0-0.8); MONO % 5.9 % (0.0-5.0); NEUTROPHILS # 4.6 10^3/uL (1.8-7.7); NEUTROPHILS % 61.4 % (36.0-66.0); PLATELET COUNT, AUTOMATED 255 10^3/uL (150-450); RED CELL DISTRIBUTION WIDTH 11.8 % (11.5-14.5); WHITE BLOOD COUNT 7.5 10^3/uL (4.0-10.0)
[2017-09-18 14:53] LABS: ALBUMIN/GLOBULIN RATIO 1.14 (1.00-1.93); ALKALINE PHOSPHATASE 70 U/L (45-117); ALT/SGPT 20 U/L (12-78); ANION GAP 9 MEQ/L (8-16); AST/SGOT 15 U/L (7-37); BILIRUBIN,TOTAL 0.4 MG/DL (0.2-1.0); BLOOD UREA NITROGEN 9 MG/DL (7-18); CALCIUM LEVEL 8.8 MG/DL (8.5-10.1); CARBON DIOXIDE LEVEL 25 MEQ/L (21-32); CHLORIDE LEVEL 105 MEQ/L (98-107); CREATININE FOR GFR 0.67 MG/DL (0.55-1.02); FREE T4 1.15 NG/DL (0.76-1.46); GLOMERULAR FILTRATION RATE > 60.0 (>60); GLUCOSE, FASTING 89 MG/DL (70-105); SODIUM LEVEL 139 MEQ/L (136-145); TOTAL PROTEIN 7.5 GM/DL (6.4-8.2)
== END ==
LOC: M WUC 13:19
PROVIDERS: ATTEND Physician Assistant
DX: J06.9 Acute upper respiratory infection, unspecified (principal); R53.83 Other fatigue

== ENCOUNTER → 2017-11-24 | Outpatient (REF) | payer OTHER | LOC: M LAB REF 17:04 | DX: J02.9 Acute pharyngitis, unspecified (principal) ==

== ENCOUNTER → 2018-01-08 | Outpatient (REF) | payer OTHER | LOC: M LAB REF 17:14 | DX: Z01.411 Encounter for gynecological examination (general) (routine) with abnormal findings (principal); Z12.4 Encounter for screening for malignant neoplasm of cervix ==